=== PATIENT | female | born 1935 | race Two or more races ===

== ENCOUNTER 2017-04-14 16:06 | Inpatient (IN) | payer MEDICAID ==
[~2017-04-14] VITALS: Ht 165.1 cm; Wt 85.7 kg
[2017-04-14] MEDS ORDERED: SODIUM CHLORIDE 0.9% 500 ML IV ONE (19:30)
[2017-04-14 20:13] LABS: BASOPHILS % 0.5 % (0.0-2.0); EOSINOPHILS % 0.4 % (0.0-5.0); HEMATOCRIT. 24.7 % (36.0-48.0); HEMOGLOBIN. 8.2 g/dL (12.0-16.0); LYMPHOCYTES % 28.6 % (20.0-50.0); MEAN CORPUSCULAR HEMOGLOBIN 33.5 pg (28.0-32.0); MEAN CORPUSCULAR VOLUME 100.9 fL (81.0-99.0); MEAN PLATELET VOLUME 8.4 fl (7.4-10.4); MONOCYTES % 13.4 % (2.0-8.0); NEUTROPHILS % 57.1 % (40.0-76.0); PLATELET 118 x1000/uL (130-400); RED BLOOD CELL COUNT 2.45 mill/uL (4.2-5.4)
[2017-04-14 20:15] LABS: INR 1.2; PROTHROMBIN TIME 12.9 sec (9.4-11.6)
[2017-04-14 20:25] LABS: CARBON DIOXIDE 20 mEq/L (21-32); CHLORIDE 106 mEq/L (98-107); TROPONIN I 0.04 ng/mL (0.00-0.04)
[2017-04-14] MEDS ORDERED: ACETAMINOPHEN 325MG TABLET PO ONE (23:00)
[2017-04-14 23:52] LABS: CLARITY URINE CLEAR (CLEAR); COLOR URINE YELLOW (YELLOW); KETONES URINE NEGATIVE (NEGATIVE); LEUKOCYTE ESTERASE URINE TRACE (NEGATIVE); NITRITE URINE NEGATIVE (NEGATIVE); OCCULT BLOOD URINE NEGATIVE (NEGATIVE); PROTEIN URINE TRACE (NEGATIVE); SPECIFIC GRAVITY URINE 1.017 (1.005-1.030); UROBILINOGEN URINE 0.2 E.U./dL (0.2-1.0)
[2017-04-15 04:00] VITALS: BP 103/61
[2017-04-15] MEDS ORDERED: LEVO50TA PO (04:39)
[2017-04-15] MEDS ORDERED: NPH,100V SQ ×2 (04:39)
[2017-04-15] MEDS ORDERED: INSU100V3 SUBCUT ×2 (04:39)
[2017-04-15] MEDS ORDERED: FURO-152 PO (04:39)
[2017-04-15] MEDS ORDERED: LOSA25TA12 PO (04:39)
[2017-04-15] MEDS ORDERED: METF10002 PO (04:39)
[2017-04-15] MEDS ORDERED: ATOR10TA69 PO (04:39)
[2017-04-15] MEDS ORDERED: LACT10SO6 MT (04:39)
[2017-04-15 08:00] VITALS: BP 89/40
[2017-04-15 09:00] VITALS: BP 135/67
[2017-04-15] MEDS ORDERED: DEXT 5%/0.45% NACL 1000ML 1,000 ML IV SCH (10:41)
[2017-04-15] MEDS ORDERED: ONDANSETRON HCL 4MG/2ML VIAL IV PRN (10:45)
[2017-04-15] MEDS ORDERED: MAGNESIUM/ALUMINUM HYDROXIDE/SIMETHICONE 30ML UDC PO PRN (10:45)
[2017-04-15] MEDS ORDERED: DIPHENHYDRAMINE 50MG/ML VIAL IV PRN (10:45)
[2017-04-15] MEDS ORDERED: IPRATROPIUM/ALBUTEROL 0.5-3(2.5)MG/3ML NEB INH PRN (10:45)
[2017-04-15] MEDS ORDERED: ACETAMINOPHEN 325MG TABLET PO PRN (10:45)
[2017-04-15 12:00] VITALS: BP 110/55
[2017-04-15] MEDS: GUAIFENESIN 200MG/10ML SUGAR FREE UDC PO SCH ×3 (12:13→20:39)
[2017-04-15] MEDS: AZITHROMYCIN 500 MG in SODIUM CHLORIDE 0.9% 250 ML IV SCH (13:28)
[2017-04-15] MEDS ORDERED: METHYLPREDNISOLONE SOD SUCC 125 MG/2 ML VIAL IV SCH (14:00)
[2017-04-15] MEDS: BENZONATATE 100MG CAPSULE PO SCH ×2 (14:25→20:40)
[2017-04-15 16:00] VITALS: BP 117/47
[2017-04-15 16:42] LABS: BG BASE EXCESS -8.3 mmol/L (-2.0-2.0); BG CARBOXYHEMOGLOBIN 0.3 % (0.5-1.5); BG DEOXYHEMOGLOBIN 3.5 % (0.0-5.0); BG FRACTION INSPIRED OXYGEN 21; BG HCO3 ACT 14.9 mmol/L (22.0-26.0); BG METHEMOGLOBIN 0.4 % (0.0-1.5); BG OXYGEN SATURATION 96.5 % (92.0-98.5); BG OXYHEMOGLOBIN 95.8 % (94.0-97.0); BG PCO2 23.3 mmHg (35.0-45.0); BG PH 7.423 (7.350-7.450); BG PO2 88.6 mmHg (75.0-100.0); BG SAMPLE SITE RIGHT RADIAL; BG TOTAL HEMOGLOBIN 8.9 g/dL (12.0-18.0); BG VENT MODE ROOM AIR
[2017-04-15] MEDS: IPRATROPIUM/ALBUTEROL 0.5-3(2.5)MG/3ML NEB HHN SCH ×2 (18:17→21:10)
[2017-04-15 20:00] VITALS: BP 114/52
[2017-04-15] MEDS: METHYLPREDNISOLONE SOD SUCC 40 MG/ML VIAL IV SCH (20:40)
[2017-04-16] VITALS: BP 103/51
[2017-04-16] MEDS: IPRATROPIUM/ALBUTEROL 0.5-3(2.5)MG/3ML NEB HHN SCH ×6 (00:46→21:54)
[2017-04-16 04:00] VITALS: BP 99/50
[2017-04-16] MEDS: BENZONATATE 100MG CAPSULE PO SCH ×3 (05:43→20:54)
[2017-04-16] MEDS: METHYLPREDNISOLONE SOD SUCC 40 MG/ML VIAL IV SCH ×3 (05:43→20:54)
[2017-04-16] MEDS: GUAIFENESIN 200MG/10ML SUGAR FREE UDC PO SCH ×4 (05:43→20:53)
[2017-04-16 12:00] VITALS: BP 91/60
[2017-04-16] MEDS: AZITHROMYCIN 500 MG in SODIUM CHLORIDE 0.9% 250 ML IV SCH (13:40)
[2017-04-16 16:00] VITALS: BP 95/37
[2017-04-16] MEDS ORDERED: LEVOFLOXACIN 500MG PREMIX 100 ML IV SCH (16:00)
[2017-04-16] MEDS: ENOXAPARIN 40MG/0.4ML SYR SUBCUT SCH (16:26)
[2017-04-16 20:00] VITALS: BP 99/67
[2017-04-17] VITALS: BP 109/52
[2017-04-17 04:00] VITALS: BP 106/41
[2017-04-17] MEDS: IPRATROPIUM/ALBUTEROL 0.5-3(2.5)MG/3ML NEB HHN SCH ×5 (04:19→20:52)
[2017-04-17] MEDS: METHYLPREDNISOLONE SOD SUCC 40 MG/ML VIAL IV SCH (05:06)
[2017-04-17] MEDS: GUAIFENESIN 200MG/10ML SUGAR FREE UDC PO SCH ×4 (05:06→20:46)
[2017-04-17] MEDS: BENZONATATE 100MG CAPSULE PO SCH ×3 (05:07→20:46)
[2017-04-17 07:22] LABS: BASOPHILS % 0.1 % (0.0-2.0); HEMATOCRIT. 23.9 % (36.0-48.0); HEMOGLOBIN. 7.9 g/dL (12.0-16.0); MEAN CORPUSCULAR HEMOGLOBIN 33.8 pg (28.0-32.0); MEAN CORPUSCULAR VOLUME 101.7 fL (81.0-99.0); MEAN PLATELET VOLUME 9.6 fl (7.4-10.4); MONOCYTES % 4.1 % (2.0-8.0); NEUTROPHILS % 87.8 % (40.0-76.0); PLATELET 113 x1000/uL (130-400); RED BLOOD CELL COUNT 2.35 mill/uL (4.2-5.4); RED CELL DISTRIBUTION WIDTH 18.1 % (11.6-14.6)
[2017-04-17 08:00] VITALS: BP 109/52
[2017-04-17] MEDS ORDERED: DEXTROSE 50% WATER 50ML SYRINGE IV PRN (09:30)
[2017-04-17] MEDS: INSULIN LISPRO 100 UNITS/ML SUBCUT SCH ×4 (09:56→21:00)
[2017-04-17 10:46] LABS: BG BASE EXCESS -11.7 mmol/L (-2.0-2.0); BG CARBOXYHEMOGLOBIN 0.3 % (0.5-1.5); BG DEOXYHEMOGLOBIN 3.3 % (0.0-5.0); BG FRACTION INSPIRED OXYGEN 21; BG METHEMOGLOBIN 0.3 % (0.0-1.5); BG OXYGEN SATURATION 96.7 % (92.0-98.5); BG OXYHEMOGLOBIN 96.1 % (94.0-97.0); BG PCO2 21.1 mmHg (35.0-45.0); BG PH 7.372 (7.350-7.450); BG PO2 92.5 mmHg (75.0-100.0); BG SAMPLE SITE RIGHT BRACHIAL; BG TOTAL HEMOGLOBIN 9.2 g/dL (12.0-18.0); BG VENT MODE ROOM AIR
[2017-04-17 12:00] VITALS: BP 132/54
[2017-04-17] MEDS: BLOOD SUGAR DIAGNOSTIC STRIP TEST SCH ×3 (12:26→20:45)
[2017-04-17] MEDS ORDERED: INSULIN NPH (HUMULIN-N) 100 UNITS/ML 3ML VIAL SUBCUT SCH ×2 (12:30→21:00)
[2017-04-17] MEDS ORDERED: INSULIN ISOPHANE SUBCUT SCH (13:00)
[2017-04-17] MEDS ORDERED: [UNRECOGNIZED DRUG - OTHER] SUBCUT SCH (13:00)
[2017-04-17] MEDS: BUDESONIDE 0.5MG/2ML NEB HHN SCH ×2 (15:37→20:52)
[2017-04-17 16:00] VITALS: BP 129/46
[2017-04-17] MEDS ORDERED: LEVOFLOXACIN 250MG PREMIX 50 ML IV SCH (16:00)
[2017-04-17] MEDS: ENOXAPARIN 40MG/0.4ML SYR SUBCUT SCH (17:06)
[2017-04-17 20:00] VITALS: BP 130/51
[2017-04-17] MEDS ORDERED: INSULIN LISPRO 100 UNITS/ML SUBCUT PRN (21:00)
[2017-04-17] MEDS: INSULIN NPH (HUMULIN-N) 100 UNITS/ML 3ML VIAL SUBCUT SCH (21:41)
[2017-04-18 00:07] VITALS: BP 109/42
[2017-04-18] MEDS: IPRATROPIUM/ALBUTEROL 0.5-3(2.5)MG/3ML NEB HHN SCH ×6 (00:16→20:49)
[2017-04-18 04:00] VITALS: BP 102/36
[2017-04-18] MEDS: BENZONATATE 100MG CAPSULE PO SCH ×3 (05:23→20:55)
[2017-04-18] MEDS: GUAIFENESIN 200MG/10ML SUGAR FREE UDC PO SCH ×4 (05:23→23:02)
[2017-04-18] MEDS: BLOOD SUGAR DIAGNOSTIC STRIP TEST SCH ×4 (06:06→20:57)
[2017-04-18 06:37] LABS: BASOPHILS % 0.1 % (0.0-2.0); HEMATOCRIT. 22.9 % (36.0-48.0); HEMOGLOBIN. 7.9 g/dL (12.0-16.0); LYMPHOCYTES % 7.7 % (20.0-50.0); MEAN CORPUSCULAR HEMOGLOBIN 34.4 pg (28.0-32.0); MEAN CORPUSCULAR VOLUME 100.3 fL (81.0-99.0); MEAN PLATELET VOLUME 9.7 fl (7.4-10.4); MONOCYTES % 5.9 % (2.0-8.0); NEUTROPHILS % 86.3 % (40.0-76.0); PLATELET 126 x1000/uL (130-400); RED BLOOD CELL COUNT 2.28 mill/uL (4.2-5.4); RED CELL DISTRIBUTION WIDTH 17.9 % (11.6-14.6)
[2017-04-18] MEDS: INSULIN LISPRO 100 UNITS/ML SUBCUT SCH ×4 (06:37→21:00)
[2017-04-18 08:00] VITALS: BP 98/76
[2017-04-18] MEDS: BUDESONIDE 0.5MG/2ML NEB HHN SCH ×2 (08:53→20:49)
[2017-04-18 08:54] LABS: CARBON DIOXIDE 20 mEq/L (21-32); CHLORIDE 99 mEq/L (98-107)
[2017-04-18] MEDS: INSULIN NPH (HUMULIN-N) 100 UNITS/ML 3ML VIAL SUBCUT SCH ×2 (10:11→21:00)
[2017-04-18 12:00] VITALS: BP 113/47
[2017-04-18] MEDS ORDERED: HYDROCODONE/ACETAMINOPHEN 5/325MG TABLET PO PRN ×2 (13:45→14:45)
[2017-04-18 16:00] VITALS: BP 105/37
[2017-04-18] MEDS: CEFAZOLIN 1000MG PREMIX 50 ML IV SCH ×2 (17:33→23:57)
[2017-04-18] MEDS: ENOXAPARIN 40MG/0.4ML SYR SUBCUT SCH (17:33)
[2017-04-18 19:59] VITALS: BP 114/43
[2017-04-19] VITALS: BP 101/51
[2017-04-19] MEDS: IPRATROPIUM/ALBUTEROL 0.5-3(2.5)MG/3ML NEB HHN SCH ×5 (01:29→16:16)
[2017-04-19 04:00] VITALS: BP 95/56
[2017-04-19] MEDS: GUAIFENESIN 200MG/10ML SUGAR FREE UDC PO SCH ×3 (05:13→16:23)
[2017-04-19] MEDS: BENZONATATE 100MG CAPSULE PO SCH ×2 (05:13→13:46)
[2017-04-19] MEDS: BLOOD SUGAR DIAGNOSTIC STRIP TEST SCH ×3 (06:35→17:10)
[2017-04-19] MEDS: INSULIN LISPRO 100 UNITS/ML SUBCUT SCH ×2 (06:35→13:48)
[2017-04-19 07:38] LABS: BASOPHILS % 0.1 % (0.0-2.0); EOSINOPHILS % 0.1 % (0.0-5.0); HEMATOCRIT. 22.7 % (36.0-48.0); HEMOGLOBIN. 7.7 g/dL (12.0-16.0); LYMPHOCYTES % 19.3 % (20.0-50.0); MEAN CORPUSCULAR HEMOGLOBIN 34.4 pg (28.0-32.0); MEAN CORPUSCULAR VOLUME 101.4 fL (81.0-99.0); MEAN PLATELET VOLUME 9.4 fl (7.4-10.4); MONOCYTES % 9.3 % (2.0-8.0); NEUTROPHILS % 71.2 % (40.0-76.0); PLATELET 125 x1000/uL (130-400); RED BLOOD CELL COUNT 2.24 mill/uL (4.2-5.4); RED CELL DISTRIBUTION WIDTH 17.9 % (11.6-14.6)
[2017-04-19 08:00] VITALS: BP 107/53
[2017-04-19] MEDS: BUDESONIDE 0.5MG/2ML NEB HHN SCH (08:45)
[2017-04-19] MEDS: INSULIN NPH (HUMULIN-N) 100 UNITS/ML 3ML VIAL SUBCUT SCH (09:00)
[2017-04-19] MEDS: CEFAZOLIN 1000MG PREMIX 50 ML IV SCH ×2 (09:26→16:23)
[2017-04-19 12:00] VITALS: BP 130/59
[2017-04-19 16:10] VITALS: BP 130/59
[2017-04-19] MEDS: ENOXAPARIN 40MG/0.4ML SYR SUBCUT SCH (16:23)
== END 2017-04-19 18:35 | disposition home or self-care (01) | DRG 720 ==
LOC: EDBD 16:06 → ER 16:06 → 8WST 04-15 00:24 → EDBEDREQTM 04-15 00:28 → EDBEDREQDT 04-15 00:28 → EDBEDREQ 04-15 00:28 → ENRESERV 04-15 03:04 → 8WST 04-15 05:33
PROVIDERS: ADMIT Internal Medicine; ATTEND Internal Medicine
DX: A41.51 Sepsis due to Escherichia coli [E. coli] (principal); J96.00 Acute respiratory failure, unspecified whether with hypoxia or hypercapnia; E43 Unspecified severe protein-calorie malnutrition; N17.9 Acute kidney failure, unspecified; J18.9 Pneumonia, unspecified organism; D69.6 Thrombocytopenia, unspecified; E11.65 Type 2 diabetes mellitus with hyperglycemia; N39.0 Urinary tract infection, site not specified; E87.1 Hypo-osmolality and hyponatremia; D64.9 Anemia, unspecified; R16.0 Hepatomegaly, not elsewhere classified; J20.9 Acute bronchitis, unspecified; R74.0 Nonspecific elevation of levels of transaminase and lactic acid dehydrogenase [LDH]; B96.20 Unspecified Escherichia coli [E. coli] as the cause of diseases classified elsewhere; J10.1 Influenza due to other identified influenza virus with other respiratory manifestations; Z83.3 Family history of diabetes mellitus; Z90.49 Acquired absence of other specified parts of digestive tract; Z90.710 Acquired absence of both cervix and uterus; Z68.31 Body mass index [BMI] 31.0-31.9, adult
CPT/HCPCS: 36415; 36600; 71010; 76700; 80048; 80053; 81001; 82105; 82375; 82805; 82962; 83036; 83605; 83880; 84484; 85025; 85610; 85651; 87040; 87077; 87086; 87186; 87804; 93005; 93306; 93970; 94640; 96360; 96361; 97162; 97165; 99285; J0456; J0690; J1650; J1815; J1956; J2920; J2930; J7040; J7050; J7060; J7620; J7626

== ENCOUNTER 2017-06-23 22:57 | Emergency (ER) | payer MEDICAID ==
[~2017-06-23] VITALS: Ht 157.5 cm; Wt 75.0 kg
[~2017-06-23 22:57] MED LIST: ATOR10TA69 PO; FURO-152 PO; INSU100V3 SUBCUT; LACT10SO6 MT; LEVO50TA PO; LOSA25TA12 PO; METF10002 PO; NPH,100V SQ
[2017-06-23] MEDS ORDERED: VANCOMYCIN 1,500 MG in DEXT 5% WATER 250 ML IV SCH (23:15)
[2017-06-23] MEDS ORDERED: SODIUM CHLORIDE 0.9% 1000ML BAG (SEPSIS BOLUS) IV ONE (23:15)
[2017-06-23] MEDS ORDERED: PIPERACILLIN/TAZOBACTAM 3.375GM/50ML PREMIX IV SCH (23:24)
[2017-06-23 23:26] VITALS: BP 154/99
[2017-06-23] MEDS ORDERED: EPINEPHRINE 0.1MG/ML (1:10,000) 10ML SYR ONE (23:54)
[2017-06-24] MEDS ORDERED: CALCIUM CHLORIDE 1GM/10ML SYR IV ONE (00:02)
[2017-06-24] MEDS ORDERED: ATROPINE SULFATE 1MG/10ML SYR ONE ×2 (02:00→16:58)
[2017-06-24] MEDS ORDERED: ETOMIDATE 2MG/ML 10ML VIAL IV ONE (02:00)
[2017-06-24] MEDS ORDERED: SODIUM BICARBONATE 7.5% 0.9 MEQ/ML 50ML SYR IV ONE (16:58)
[2017-06-24] MEDS ORDERED: EPINEPHRINE 0.1MG/ML (1:10,000) 10ML SYR ONE (16:58)
[2017-06-24] MEDS ORDERED: AMIODARONE HCL 50MG/ML 3ML VIAL IV ONE (16:58)
== END 2017-06-24 00:01 | disposition expired ==
LOC: ER 22:59 → CANBEDREQ 06-24 06:16
DX: I46.9 Cardiac arrest, cause unspecified (principal); A41.9 Sepsis, unspecified organism; R65.21 Severe sepsis with septic shock; J96.90 Respiratory failure, unspecified, unspecified whether with hypoxia or hypercapnia; R10.9 Unspecified abdominal pain; E05.90 Thyrotoxicosis, unspecified without thyrotoxic crisis or storm; I10 Essential (primary) hypertension; E11.9 Type 2 diabetes mellitus without complications; Z79.4 Long term (current) use of insulin
CPT/HCPCS: 31500; 82962; 92950; 93005; 96360; 99285; J0171; J0282; J0461; J3370; J3490; J7030; J7060